=== PATIENT | female | born 1990 | race African-American/Black ===

== ENCOUNTER 2016-08-08 15:11 | Emergency (ER) | payer SELFPAY ==
[2016-08-08] MEDS ORDERED: FAMOTIDINE 20 MG TABLET PO ONE (15:57)
[2016-08-08] MEDS ORDERED: DIPHENHYDRAMINE HCL 25 MG CAPSULE PO ONE (15:57)
--- NOTE | 2016-08-08 15:57 | ER Document Report ---
ED Medical Screen (RME) - General Stated Complaint: SKIN PROBLEM Notes: thursday "rash" that is in no particular distribution. denies new medication, new cleaning products, soaps had exposure to a "dog cleaning product" on thursday never had chicken pox I have greeted and performed a rapid initial assessment of this patient. A comprehensive ED assessment and evaluation of the patient, analysis of test results and completion of the medical decision making process will be conducted by additional ED providers. TRAVEL OUTSIDE OF THE [place] IN LAST 30 DAYS: No - Related Data Allergies/Adverse Reactions: coconut Allergy (Verified 06/04/16 23:42) Past Medical History - Immunizations Hx Diphtheria, Pertussis, Tetanus Vaccination: Yes Physical Exam - Vital signs Vitals: Temp Pulse Resp BP Pulse Ox 98.1 F 87 18 110/65 100 08/08/16 15:35 08/08/16 15:35 08/08/16 15:35 08/08/16 15:35 08/08/16 15:35 Course - Vital Signs Vital signs: Temp Pulse Resp BP Pulse Ox 98.1 F 87 18 110/65 100 08/08/16 15:35 08/08/16 15:35 08/08/16 15:35 08/08/16 15:35 08/08/16 15:35
--- NOTE | 2016-08-08 18:16 | ER Document Report ---
ED General - General Chief Complaint: Rash Stated Complaint: SKIN PROBLEM Mode of Arrival: Ambulatory Information source: Patient Notes: Patient is a 26 yo female who presents with red rash that itches that has been present for the past 2 days. She states it started on her right lower leg and spread up her leg and is now on the other leg, both arms and her face. She describes it as itching. She denies any new soaps, cleaning products, lotions. She denies any contact with poison padmini or poison oak. No new pets. She does endorse being around a pet cleaning product last week. TRAVEL OUTSIDE OF THE [place] IN LAST 30 DAYS: No - Related Data Allergies/Adverse Reactions: coconut Allergy (Verified 08/08/16 15:55) Past Medical History - Social History Smoking Status: Never Smoker Chew tobacco use (# tins/day): No Frequency of alcohol use: None Drug Abuse: None Family History: Reviewed & Not Pertinent Patient has suicidal ideation: No Patient has homicidal ideation: No Renal/ Medical History: Denies: Hx Peritoneal Dialysis Past Surgical History: Reports: Hx Section - Immunizations Hx Diphtheria, Pertussis, Tetanus Vaccination: Yes Review of Systems - Review of Systems Constitutional: See HPI EENT: No symptoms reported Cardiovascular: No symptoms reported Respiratory: No symptoms reported Gastrointestinal: No symptoms reported Genitourinary: No symptoms reported Female Genitourinary: No symptoms reported Musculoskeletal: No symptoms reported Skin: See HPI Hematologic/Lymphatic: No symptoms reported Neurological/Psychological: No symptoms reported Physical Exam - Vital signs Vitals: Temp Pulse Resp BP Pulse Ox 98.1 F 87 18 110/65 100 08/08/16 15:35 08/08/16 15:35 08/08/16 15:35 08/08/16 15:35 08/08/16 15:35 Interpretation: Normal - Notes Notes: PHYSICAL EXAM: CONSTITUTIONAL: Alert and oriented, well-appearing and in no acute distress. HENT: Normocephalic, atraumatic. Moist mucous membranes. EYES: Pupils equal round and reactive to light, EOM intact. Sclera anicteric, conjunctiva are normal. No entrapment. HEART: Regular rate and rhythm without murmurs. LUNGS: CTAB and equal. No wheezes, rales or rhonchi. EXTREMITIES: Normal range of motion, no pitting edema. No cyanosis. Cap Refill < 3 seconds. PSYCH: Normal mood, normal affect. SKIN: Warm and dry. Normal turgor. No lesions noted. Scattered erythematous papules on bilateral lower extremities and bilateral upper extremities and right cheek. Course - Re-evaluation Re-evalutation: 08/08/16 18:30 Patient seen and examined. Rash consistent with contact dermatitis. Will discharge home in stable condition with script, follow-up with PMD. Discussed supportive care treatments. Patient in agreement with management and plan. - Vital Signs Vital signs: Temp Pulse Resp BP Pulse Ox 98.1 F 87 18 110/65 100 08/08/16 15:35 08/08/16 15:35 08/08/16 15:35 08/08/16 15:35 08/08/16 15:35 Discharge - Discharge Clinical Impression: Contact dermatitis Qualifiers: Contact dermatitis type: irritant Contact dermatitis trigger: unspecified trigger Qualified Code(s): L24.9 - Irritant contact dermatitis, unspecified cause Condition: Stable Disposition: HOME, SELF-CARE Additional Instructions: STEROID MEDICATION: You have been given a medicine of the cortisone/steroid class. This medication is used to control inflammation or allergy. It is usually only given for a short period of time, until the acute process subsides. There are usually no side effects from short-term use of cortisone-like medications. Some persons feel an increased sense of well-being and are not sleepy at bedtime. Long-term use of cortisone medications is best avoided, unless required for a severe condition. If your condition does not remit, or relapses after the course of corticosteroid medication, you should consult your physician. Permethrin Topical: Cream 5%: Thoroughly massage cream from head to soles of feet; leave on for 8 to 14 hours before removing (shower or bath); may repeat if living mites are observed 14 days after first treatment; one application is generally curative. Scabies scabies are microscopic parasites of the skin. These mites nalini through the skin, causing severe itching. The mite can be spread to other persons by skin contact. All clothing, towels, and bedding should be washed in very hot water, set aside for a week, then washed again. You should apply scabies-killing lotion from the neck down, then wash it off after 12 hours. You may need medication for itching, as the itch persists for many days after the mites have been killed. All family members and close personal contacts should be examined. Repeat treatment may be necessary if the infestation is not eliminated with a single treatment. Call the doctor if you develop increasing swelling and redness, red streaks , tender lumps, fever, or drainage from a skin sore. Prescriptions: Hydrocortisone/Oatmeal/Aloe/E [Hydrocortisone 1% Cream] 1 applic TP Q4HP PRN #1 cream.gm. PRN Reason: Permethrin [Acticin 5% Cream 60 gm] 1 applic TP ONCE PRN #1 tube PRN Reason: Prednisone [Deltasone 20 mg Tablet] 3 tab PO DAILY 5 Days
[2016-08-08 18:54] VITALS: BP 109/67
== END 2016-08-08 18:54 | disposition home or self-care (01) ==
LOC: ER 15:11
DX: L24.9 Irritant contact dermatitis, unspecified cause (principal); Z91.018 Allergy to other foods
CPT/HCPCS: 99282

== ENCOUNTER 2016-10-07 16:31 | Emergency (ER) | payer SELFPAY ==
--- NOTE | 2016-10-07 17:15 | ER Document Report ---
ED Medical Screen (RME) - General Chief Complaint: Flu Symptoms Stated Complaint: NAUSEA,BODY ACHES,HEADACHE Notes: This 26-year-old female reports onset today of nausea, body aches, runny nose, tired and fatigued, chest pain, headache. She also reports she has had several bowel movements today, they are not diarrhea. LMP 10/01/2016 I have greeted and performed a rapid initial assessment of this patient. A comprehensive ED assessment and evaluation of the patient, analysis of test results and completion of the medical decision making process will be conducted by additional ED providers. TRAVEL OUTSIDE OF THE [place] IN LAST 30 DAYS: No - Related Data Allergies/Adverse Reactions: coconut Allergy (Verified 10/07/16 16:38) Past Medical History Renal/ Medical History: Denies: Hx Peritoneal Dialysis Past Surgical History: Reports: Hx Section - Immunizations Hx Diphtheria, Pertussis, Tetanus Vaccination: Yes Physical Exam - Vital signs Vitals: Temp Pulse Resp BP Pulse Ox 98.4 F 87 18 132/100 H 100 10/07/16 16:41 10/07/16 16:41 10/07/16 16:41 10/07/16 16:41 10/07/16 16:41 Course - Vital Signs Vital signs: Temp Pulse Resp BP Pulse Ox 98.4 F 87 18 132/100 H 100 10/07/16 16:41 10/07/16 16:41 10/07/16 16:41 10/07/16 16:41 10/07/16 16:41
[2016-10-07 17:37] LABS: ABSOLUTE EOSINOPHILS # (AUTO) 0.1 10^3/uL (0.0-0.6); ABSOLUTE LYMPHOCYTES (AUTO) 3.5 10^3/uL (0.5-4.7); ABSOLUTE MONOCYTES (AUTO) 0.4 10^3/uL (0.1-1.4); ABSOLUTE NEUT (AUTO) 2.9 10^3/uL (1.7-8.2); BASOPHILS % (AUTO) 0.4 % (0-2); EOSINOPHILS % (AUTO) 1.1 % (0-6); HEMATOCRIT 33.6 % (36.0-47.0); HEMOGLOBIN 10.7 g/dL (12.0-15.5); HGB HCT DIFFERENCE -1.5; LYMPHOCYTES % (AUTO) 50.9 % (13-45); MEAN CORPUSCULAR HEMOGLOBIN 22.4 pg (27.0-33.4); MEAN CORPUSCULAR HGB CONC 31.9 g/dL (32.0-36.0); MEAN CORPUSCULAR VOLUME 70 fl (80-97); MONOCYTES % (AUTO) 6.1 % (3-13); RED BLOOD COUNT 4.77 10^6/uL (3.72-5.28); RED CELL DISTRIBUTION WIDTH 17.2 % (11.5-14.0); SEGMENTED NEUTROPHILS % (AUTO) 41.5 % (42-78); WHITE BLOOD COUNT 6.9 10^3/uL (4.0-10.5)
[2016-10-07 17:39] LABS: APPEARANCE,URINE SLIGHTLY-CLOUDY; BILIRUBIN,URINE NEGATIVE (NEGATIVE); GLUCOSE, URINE NEGATIVE (NEGATIVE); KETONES,URINE NEGATIVE (NEGATIVE); LEUKOCYTE ESTERASE,URINE TRACE (NEGATIVE); NITRITE,URINE NEGATIVE (NEGATIVE); PROTEIN,URINE NEGATIVE (NEGATIVE); URINE SPECIFIC GRAVITY 1.019; UROBILINOGEN,URINE NEGATIVE mg/dL (<2.0)
[2016-10-07 17:56] LABS: ALANINE AMINOTRANSFERASE 30 U/L (9-52); ALBUMIN 4.8 g/dL (3.5-5.0); ALKALINE PHOSPHATASE 67 U/L (38-126); ANION GAP 14 (5-19); ASPARTATE AMINO TRANSFERASE 20 U/L (14-36); BILIRUBIN,DIRECT 0.2 mg/dL (0.0-0.4); BILIRUBIN,TOTAL 0.5 mg/dL (0.2-1.3); BLOOD UREA NITROGEN 9 mg/dL (7-20); CALCIUM 9.4 mg/dL (8.4-10.2); CARBON DIOXIDE 27 mmol/L (22-30); CHLORIDE 106 mmol/L (98-107); CREATININE RESULT 0.65 mg/dL (0.52-1.25); GLUCOSE 87 mg/dL (75-110); POTASSIUM 4.1 mmol/L (3.6-5.0); SODIUM 147.1 mmol/L (137-145); TOTAL PROTEIN 7.7 g/dL (6.3-8.2)
--- NOTE | 2016-10-07 19:06 | ER Document Report ---
HPI - HPI Patient complains to provider of: bodyaches, nausea, runny nose Onset: Yesterday Onset/Duration: Gradual Pain Level: 4 Context: 26-year-old female complaining of runny nose, generalized bodyaches, diarrhea, heartburn, nausea this morning. No fever or chills. No vomiting. No rash. No chest pain, shortness of breath, or abdominal pain. Associated Symptoms: None Exacerbated by: Denies Relieved by: Denies Similar symptoms previously: No Recently seen / treated by doctor: No - ROS ROS below otherwise negative: Yes Systems Reviewed and Negative: Yes All other systems reviewed and negative - sore throat for 10 days on a smoker with no fever no cancer until proven ot - REPRODUCTIVE Reproductive: DENIES: : - DERM Skin Color: Normal Past Medical History - General Information source: Patient - the 1 - Social History Smoking Status: Unknown if Ever Smoked Frequency of alcohol use: None Drug Abuse: None Lives with: Family Family History: Reviewed & Not Pertinent Patient has suicidal ideation: No Patient has homicidal ideation: No - Medical History Medical History: Negative Renal/ Medical History: Denies: Hx Peritoneal Dialysis Past Surgical History: Reports: Hx Section - Immunizations Hx Diphtheria, Pertussis, Tetanus Vaccination: Yes Vertical Provider Document - CONSTITUTIONAL Agree With Documented VS: Yes - INFECTION CONTROL TRAVEL OUTSIDE OF THE [place] IN LAST 30 DAYS: No - HEENT HEENT: Normocephalic - elevated blood pressure I initially asked what medical problems he hadn't yet to take medicines for, Pharyngeal Erythema - mild no. negative: Tympanic Membrane Red, Tympanic Membrane Bulging - More - NECK Neck: Supple. negative: Lymphadenopathy-Left, Lymphadenopathy-Right - RESPIRATORY Respiratory: Breath Sounds Normal, No Respiratory Distress O2 Sat by Pulse Oximetry: 100 - CARDIOVASCULAR Cardiovascular: Regular Rate, Regular Rhythm - GI/ABDOMEN Gastrointestinal: Abdomen Soft, Abdomen Non-Tender, No Organomegaly - MUSCULOSKELETAL/EXTREMETIES Musculoskeletal/Extremeties: MAEW, FROM, Non-Tender - NEURO Level of Consciousness: Awake, Alert - DERM Integumentary: Warm, No Rash Course - Vital Signs Vital signs: Temp Pulse Resp BP Pulse Ox 98.4 F 87 18 132/100 H 100 10/07/16 16:41 10/07/16 16:41 10/07/16 16:41 10/07/16 16:41 10/07/16 16:41 - Laboratory Result Diagrams: 10/07/16 17:25 10/07/16 17:25 Laboratory results interpreted by me: 10/07/16 10/07/16 10/07/16 17:25 17:25 17:25 Hgb 10.7 L Hct 33.6 L MCV 70 L MCH 22.4 L MCHC 31.9 L RDW 17.2 H Seg Neutrophils % 41.5 L Lymphocytes % 50.9 H Sodium 147.1 H Ur Leukocyte Esterase TRACE H Discharge - Discharge Clinical Impression: diarrhea, Elevated blood pressure reading Anemia Qualifiers: Anemia type: unspecified type Qualified Code(s): D64.9 - Anemia, unspecified Upper respiratory infection Qualifiers: URI type: unspecified viral URI Qualified Code(s): J06.9 - Acute upper respiratory infection, unspecified Condition: Good Disposition: HOME, SELF-CARE Instructions: Acetaminophen, Upper Respiratory Illness ([facility]), Diarrhea, Nonspecific ([facility]), Fatigue ([facility]), High Blood Pressure ([facility]) Additional Instructions: plenty of fluids rest to er if worse see family urgent care for follow up Please complete the patient satisfaction survey if you get one, and return it.. If you do not receive a survey, then you can go to the [facility] website, [email or web address] and place your comments about your very good care. Thank you very much. It was a pleasure being your medical provider today. Forms: Return to Work Referrals: DORENE COLE MD [ACTIVE STAFF] - Follow up in 1 week
[2016-10-07 23:58] VITALS: BP 120/78
== END 2016-10-07 20:00 | disposition home or self-care (01) ==
LOC: ER 16:31
DX: J06.9 Acute upper respiratory infection, unspecified (principal); R19.7 Diarrhea, unspecified; R03.0 Elevated blood-pressure reading, without diagnosis of hypertension; D64.9 Anemia, unspecified; R52 Pain, unspecified; R11.0 Nausea; R09.89 Other specified symptoms and signs involving the circulatory and respiratory systems; R12 Heartburn
CPT/HCPCS: 36415; 80053; 81001; 84703; 85025; 99283

== ENCOUNTER 2016-10-16 10:00 | Emergency (ER) | payer SELFPAY ==
[2016-10-16] MEDS ORDERED: NAPROXEN 250 MG TABLET PO ONE (10:45)
--- NOTE | 2016-10-16 10:50 | ER Document Report ---
HPI - HPI Patient complains to provider of: bilateral wrist pain Onset: Yesterday Onset/Duration: Gradual Quality of pain: Achy Pain Level: 4 Context: Patient complains of bilateral wrist pain with tingling. Patient denies any injury. Patient denies any fever. Patient is right-hand dominant. Associated Symptoms: Other - Bilateral wrist pain Exacerbated by: Movement Relieved by: Denies Similar symptoms previously: No Recently seen / treated by doctor: No - ROS ROS below otherwise negative: Yes Systems Reviewed and Negative: Yes All other systems reviewed and negative - CONSTITUTIONAL Constitutional: DENIES: Fever - NEURO Neurology: DENIES: Weakness - CARDIOVASCULAR Cardiovascular: DENIES: Chest pain - REPRODUCTIVE Reproductive: DENIES: : - MUSCULOSKELETAL Musculoskeletal: REPORTS: Extremity pain. DENIES: Swelling - DERM Skin Color: Normal Skin Problems: None Past Medical History - General Information source: Patient - Social History Smoking Status: Never Smoker Chew tobacco use (# tins/day): No Frequency of alcohol use: None Drug Abuse: None Occupation: sales agent food vending service Family History: Reviewed & Not Pertinent Patient has suicidal ideation: No - Medical History Medical History: Negative Renal/ Medical History: Denies: Hx Peritoneal Dialysis Past Surgical History: Reports: Hx Section - Immunizations Hx Diphtheria, Pertussis, Tetanus Vaccination: Yes Vertical Provider Document - CONSTITUTIONAL Agree With Documented VS: Yes Exam Limitations: No Limitations - INFECTION CONTROL TRAVEL OUTSIDE OF THE [place] IN LAST 30 DAYS: No - HEENT HEENT: Atraumatic, Normocephalic - NECK Neck: Normal Inspection Notes: No cervical midline tenderness, step-off, or deformity - RESPIRATORY Respiratory: Breath Sounds Normal, No Respiratory Distress O2 Sat by Pulse Oximetry: 100 - CARDIOVASCULAR Cardiovascular: Regular Rate, Regular Rhythm, No Murmur Pulses: Normal: Radial - BACK Back: Normal Inspection - MUSCULOSKELETAL/EXTREMETIES Musculoskeletal/Extremeties: MAEW, FROM, Tender - Mild tenderness to bilateral wrist with range of motion, No Edema - NEURO Level of Consciousness: Awake, Alert, Appropriate Motor/Sensory: No Motor Deficit, No Sensory Deficit Notes: Normal strength to bilateral upper extremities 5/5 Positive Phalen and Tinel sign - DERM Integumentary: Warm, Dry, No Rash Course - Vital Signs Vital signs: Temp Pulse Resp BP Pulse Ox 98.7 F 85 18 114/64 100 10/16/16 10:04 10/16/16 10:04 10/16/16 10:04 10/16/16 10:04 10/16/16 10:04 Procedures - Immobilization Left Wrist Pre-Proc Neuro Vasc Exam: Normal Immobilizer type: Cock-up Performed by: PCT Post-Proc Neuro Vasc Exam: Normal Alignment checked and good: Yes Right Wrist Pre-Proc Neuro Vasc Exam: Normal Immobilizer type: Cock-up Performed by: PCT Post-Proc Neuro Vasc Exam: Normal Alignment checked and good: Yes Discharge - Discharge Clinical Impression: Bilateral wrist pain Condition: Stable Disposition: HOME, SELF-CARE Instructions: Carpal Tunnel Syndrome ([facility]), Temporary Splint ([facility]), Anti- Inflammatory Medication ([facility]) Additional Instructions: Return immediately for any new or worsening symptoms Followup with your primary care provider, call tomorrow to make a followup appointment Avoid repetitive wrist movements Follow-up with your primary doctor for recheck, you may need additional outpatient testing for any continued pain or problems Prescriptions: Naproxen [Naprosyn 250 Nmg Tablet] 1 tab PO BID #14 tablet Referrals: [facility] [Provider Group] - Follow up in 3-5 days
[2016-10-16 11:10] VITALS: BP 118/61
== END 2016-10-16 11:13 | disposition home or self-care (01) ==
LOC: ER 10:00
DX: M25.531 Pain in right wrist (principal); M25.532 Pain in left wrist; R20.2 Paresthesia of skin
CPT/HCPCS: 99283; L3984 ×2

== ENCOUNTER 2019-02-08 16:39 | Emergency (ER) | payer BC, MEDICAID ==
[2019-02-08] MEDS ORDERED: HYDROCODONE/ACETAMINOPHEN 5-325 MG TABLET PO ONE (17:30)
--- NOTE | 2019-02-08 17:31 | ER Document Report ---
HPI - HPI Time Seen by Provider: 02/08/19 17:22 Pain Level: 4 - REPRODUCTIVE Reproductive: DENIES: : Past Medical History - General Information source: Patient - Social History Smoking Status: Never Smoker Frequency of alcohol use: Occasional Drug Abuse: None Occupation: [employer] work Lives with: Family Family History: Reviewed & Not Pertinent Patient has suicidal ideation: No Patient has homicidal ideation: No Renal/ Medical History: Denies: Hx Peritoneal Dialysis Past Surgical History: Reports: Hx Section - Immunizations Hx Diphtheria, Pertussis, Tetanus Vaccination: Yes Vertical Provider Document - CONSTITUTIONAL Agree With Documented VS: Yes Exam Limitations: No Limitations General Appearance: WD/WN, No Apparent Distress Notes: PHYSICAL EXAMINATION: GENERAL: Well-appearing, well-nourished and in no acute distress. HEAD: Atraumatic, normocephalic. EYES: sclera clear, anicteric, conjunctiva are normal. ENT: nares patent, Moist mucous membranes. NECK: Normal range of motion, supple LUNGS: respirations unlabored HEART: Regular rate and rhythm without murmurs EXTREMITIES: Normal range of motion, no pitting or edema. No cyanosis. Gait normal, pt ambulates without difficulty BACK: No lumbar midline tenderness, no deformities or step-offs. Right CVA tenderness. NEUROLOGICAL: Cranial nerves grossly intact. Normal speech, normal gait. PSYCH: Normal mood, normal affect. SKIN: Warm, Dry, normal turgor, no rashes or lesions noted. - INFECTION CONTROL TRAVEL OUTSIDE OF THE [place] IN LAST 30 DAYS: No Course - Vital Signs Vital signs: Temp Pulse Resp BP Pulse Ox 98.0 F 85 14 111/63 100 02/08/19 16:54 02/08/19 16:54 02/08/19 16:54 02/08/19 16:54 02/08/19 16:54 Discharge - Discharge Referrals: SAW DALEY MD [Primary Care Provider] - Follow up as needed
[2019-02-08 18:18] LABS: APPEARANCE,URINE SLIGHTLY-CLOUDY; BILIRUBIN,URINE SMALL (NEGATIVE); GLUCOSE, URINE NEGATIVE (NEGATIVE); KETONES,URINE TRACE mg/dL (NEGATIVE); LEUKOCYTE ESTERASE,URINE SMALL (NEGATIVE); NITRITE,URINE POSITIVE (NEGATIVE); PROTEIN,URINE 30 mg/dL (NEGATIVE); URINE SPECIFIC GRAVITY 1.034
[2019-02-08 18:19] LABS: COLOR,URINE DARK YELLOW
[2019-02-08] MEDS ORDERED: KETOROLAC TROMETHAMINE INJ/PF 30 MG/1 ML SDV IV ONE (18:40)
[2019-02-08] MEDS ORDERED: NORMAL SALINE 1000 ML 1,000 ML IV ONE (18:40)
[2019-02-08] MEDS ORDERED: CEFTRIAXONE 1 GM/D5W RTU 1 GM/50 ML RTUPB IV ONE (18:40)
[2019-02-08] MEDS ORDERED: ONDANSETRON HCL INJ/PF 4 MG/2 ML SDV IV ONE (18:42)
--- NOTE | 2019-02-08 18:43 | ER Document Report ---
ED Medical Screen (RME) - General Chief Complaint: Back Pain Stated Complaint: BACK PAIN Time Seen by Provider: 02/08/19 17:22 Primary Care Provider: SAW DALEY MD [ACTIVE STAFF] - Follow up as needed Mode of Arrival: Ambulatory Information source: Patient Notes: Patient presents complaining of right flank pain for the past 4 days with generalized body aches. Patient states intensity of pain will vary. Patient does report some mild nausea. Patient denies any urinary symptoms. I have greeted and performed a rapid initial assessment of this patient. [facility] prehensive ED assessment and evaluation of the patient, analysis of test results and completion of the medical decision making process will be conducted by additional ED providers. TRAVEL OUTSIDE OF THE [place] IN LAST 30 DAYS: No - Related Data Allergies/Adverse Reactions: coconut Allergy (Verified 02/08/19 16:40) Past Medical History - Social History Frequency of alcohol use: Occasional Drug Abuse: None Renal/ Medical History: Denies: Hx Peritoneal Dialysis Past Surgical History: Reports: Hx Section - Immunizations Hx Diphtheria, Pertussis, Tetanus Vaccination: Yes Physical Exam - Vital signs Vitals: Temp Pulse Resp BP Pulse Ox 98.0 F 85 14 111/63 100 02/08/19 16:54 02/08/19 16:54 02/08/19 16:54 02/08/19 16:54 02/08/19 16:54 - Back Back: CVA tenderness - Right flank Course - Vital Signs Vital signs: Temp Pulse Resp BP Pulse Ox 98.0 F 85 14 111/63 100 02/08/19 16:54 02/08/19 16:54 02/08/19 16:54 02/08/19 16:54 02/08/19 16:54 - Laboratory Laboratory results interpreted by me: 02/08/19 17:45 Urine Protein 30 H Urine Ketones TRACE H Urine Nitrite POSITIVE H Urine Bilirubin SMALL H Urine Urobilinogen 4.0 H Ur Leukocyte Esterase SMALL H Urine Ascorbic Acid 40 H Doctor's Discharge - Discharge Referrals: SAW DALEY MD [ACTIVE STAFF] - Follow up as needed
[2019-02-08 20:18] LABS: ABSOLUTE BASOPHILS # (AUTO) 0.1 10^3/uL (0.0-0.2); ABSOLUTE EOSINOPHILS # (AUTO) 0.1 10^3/uL (0.0-0.6); ABSOLUTE LYMPHOCYTES (AUTO) 3.6 10^3/uL (0.5-4.7); ABSOLUTE MONOCYTES (AUTO) 0.6 10^3/uL (0.1-1.4); ABSOLUTE NEUT (AUTO) 5.5 10^3/uL (1.7-8.2); EOSINOPHILS % (AUTO) 0.9 % (0-6); HEMATOCRIT 35.7 % (36.0-47.0); HEMOGLOBIN 11.4 g/dL (12.0-15.5); LYMPHOCYTES % (AUTO) 36.2 % (13-45); MEAN CORPUSCULAR HEMOGLOBIN 23.7 pg (27.0-33.4); MEAN CORPUSCULAR VOLUME 74 fl (80-97); MONOCYTES % (AUTO) 5.9 % (3-13); PLATELET COUNT 334 10^3/uL (150-450); RED BLOOD COUNT 4.83 10^6/uL (3.72-5.28); RED CELL DISTRIBUTION WIDTH 17.7 % (11.5-14.0); TOTAL CELLS COUNTED % (AUTO) 100 %; WHITE BLOOD COUNT 9.9 10^3/uL (4.0-10.5)
--- NOTE | 2019-02-08 20:31 | RADIOLOGY REPORT (SQ) ---
CT ABDOMEN PELVIS WITHOUT IV CONTRAST EXAM DATE: 02/08/2019 6:41 PM CDT HISTORY: Right flank pain. COMPARISON: None. TECHNIQUE: CT scan of the abdomen and pelvis was performed without IV contrast. This exam was performed according to our departmental dose-optimization program, which includes automated exposure control, adjustment of the mA and/or kV according to patient size and/or use of iterative reconstruction technique. FINDINGS: The lung bases are clear. No pleural or pericardial effusions. There is no hiatal hernia. The liver, spleen, pancreas, gallbladder, adrenal glands, and kidneys are unremarkable. No urinary stones are seen. The pelvic organs are also unremarkable. No small bowel obstruction. The appendix is normal. There is no evidence of diverticulitis. No intraperitoneal free fluid or free air is identified. The aorta is normal caliber. No acute bony findings are seen. There is no pathologic body wall hernia. IMPRESSION: No acute abdominal or pelvic pathology.
[2019-02-08 20:39] LABS: ALBUMIN 4.6 g/dL (3.5-5.0); ALKALINE PHOSPHATASE 66 U/L (38-126); ANION GAP 10 (5-19); ASPARTATE AMINO TRANSFERASE 20 U/L (14-36); BILIRUBIN,DIRECT 0.2 mg/dL (0.0-0.4); BILIRUBIN,TOTAL 0.3 mg/dL (0.2-1.3); BLOOD UREA NITROGEN 20 mg/dL (7-20); CALCIUM 9.3 mg/dL (8.4-10.2); CARBON DIOXIDE 26 mmol/L (22-30); CHLORIDE 105 mmol/L (98-107); GLUCOSE 88 mg/dL (75-110); POTASSIUM 3.9 mmol/L (3.6-5.0); TOTAL PROTEIN 7.7 g/dL (6.3-8.2)
[2019-02-08] MEDS ORDERED: ONDANSETRON ODT 4 MG TAB (6 TAB/ER DISP) PO PRN (21:15)
[2019-02-08] MEDS ORDERED: HYDROCODONE/ACETAMINOPHEN 5-325 MG (6 TAB/ER DISP) PO PRN (21:15)
--- NOTE | 2019-02-08 21:15 | ER Document Report ---
ED General - General Chief Complaint: Back Pain Stated Complaint: BACK PAIN Time Seen by Provider: 02/08/19 17:22 Primary Care Provider: SAW DALEY MD [ACTIVE STAFF] - Follow up as needed Mode of Arrival: Ambulatory Notes: Patient is otherwise healthy 28-year-old female presents to the emergency department for right flank pain. Patient states she has had generalized right flank pain for the last 4 days. Patient states pain intermittently will radiate around to her right side. Patient is also complaining of generalized nausea, denies any vomiting or diarrhea. Denies any fevers, denies any dysuria but does admit to urinary frequency. Patient's denying any vaginal discharge. Patient's denying any history of kidney stones. TRAVEL OUTSIDE OF THE [place] IN LAST 30 DAYS: No - Related Data Allergies/Adverse Reactions: coconut Allergy (Verified 02/08/19 16:40) Past Medical History - General Information source: Patient - Social History Smoking Status: Never Smoker Chew tobacco use (# tins/day): No Frequency of alcohol use: Rare Drug Abuse: None Family History: Reviewed & Not Pertinent Patient has suicidal ideation: No Patient has homicidal ideation: No Renal/ Medical History: Denies: Hx Peritoneal Dialysis Past Surgical History: Reports: Hx Section - Immunizations Hx Diphtheria, Pertussis, Tetanus Vaccination: Yes Review of Systems - Review of Systems Constitutional: denies: Fever EENT: No symptoms reported Cardiovascular: No symptoms reported Respiratory: No symptoms reported Gastrointestinal: See HPI Genitourinary: See HPI Female Genitourinary: See HPI, Last menstrual period - Unsure Musculoskeletal: See HPI Skin: No symptoms reported Hematologic/Lymphatic: No symptoms reported Neurological/Psychological: No symptoms reported Physical Exam - Vital signs Vitals: Temp Pulse Resp BP Pulse Ox 98.0 F 85 14 111/63 100 02/08/19 16:54 02/08/19 16:54 02/08/19 16:54 02/08/19 16:54 02/08/19 16:54 - Notes Notes: GENERAL: Alert, interacts well. No acute distress. HEAD: Normocephalic, atraumatic. EYES: Pupils equal, round, and reactive to light. Extraocular movements intact. ENT: Oral mucosa moist, tongue midline. NECK: Full range of motion. Supple. Trachea midline. LUNGS: Clear to auscultation bilaterally, no wheezes, rales, or rhonchi. No respiratory distress. HEART: Regular rate and rhythm. No murmur ABDOMEN: Soft, non-tender. Non-distended. Bowel sounds present in all 4 quadrants. No McBurney's point tenderness, no Seymour sign noted. EXTREMITIES: Moves all 4 extremities spontaneously. No edema, normal radial and dorsalis pedis pulses bilaterally. No cyanosis. BACK: no cervical, thoracic, lumbar midline tenderness. No saddle anesthesia, normal distal neurovascular exam. Minor right CVA tenderness noted, no left CVA tenderness. NEUROLOGICAL: Alert and oriented x3. Normal speech. cranial nerves II through XII grossly intact PSYCH: Normal affect, normal mood. SKIN: Warm, dry, normal turgor. No rashes or lesions noted. Course - Re-evaluation Re-evalutation: 02/08/19 21:13 Laboratory 02/08/19 02/08/19 02/08/19 17:45 19:53 19:53 WBC 9.9 RBC 4.83 Hgb 11.4 L Hct 35.7 L MCV 74 L MCH 23.7 L MCHC 32.0 RDW 17.7 H Plt Count 334 Seg Neutrophils % 56.0 Lymphocytes % 36.2 Monocytes % 5.9 Eosinophils % 0.9 Basophils % 1.0 Absolute Neutrophils 5.5 Absolute Lymphocytes 3.6 Absolute Monocytes 0.6 Absolute Eosinophils 0.1 Absolute Basophils 0.1 Sodium 140.5 Potassium 3.9 Chloride 105 Carbon Dioxide 26 Anion Gap 10 BUN 20 Creatinine 0.89 Est GFR ( Amer) > 60 Est GFR (Non-Af Amer) > 60 Glucose 88 Calcium 9.3 Total Bilirubin 0.3 Direct Bilirubin 0.2 Neonat Total Bilirubin Not Reportable Neonat Direct Bilirubin Not Reportable Neonat Indirect Bili Not Reportable AST 20 ALT 11 Alkaline Phosphatase 66 Total Protein 7.7 Albumin 4.6 Urine Color DARK YELLOW Urine Appearance SLIGHTLY-CLOUDY Urine pH 5.0 Ur Specific [place] 1.034 Urine Protein 30 H Urine Glucose (UA) NEGATIVE Urine Ketones TRACE H Urine Blood NEGATIVE Urine Nitrite POSITIVE H Urine Bilirubin SMALL H Urine Urobilinogen 4.0 H Ur Leukocyte Esterase SMALL H Urine WBC (Auto) 15 Urine RBC (Auto) 19 Urine Bacteria (Auto) TRACE Squamous Epi Cells Auto 2 U Non-Squamous Epis Auto 3 Urine Mucus (Auto) MANY Urine Ascorbic Acid 40 H Urine HCG, Qual NEGATIVE Abdomen/Pelvis CT 02/08/19 18:41 IMPRESSION: No acute abdominal or pelvic pathology. Upon my evaluation the patient patient is Guilherme been treated with pain management, fluid resuscitation and antibiotics. Her CT imaging shows no acute pelvic or abdominal pathology. Patient's urine does do show signs of infection, sent for culture. My exam reveals very minor right CVA tenderness. Patient voices that she does feel a lot better than when she arrived to the emergency room. Discussed use of antibiotics, nausea medication and pain medication with close follow-up. At this time will discharge with return precautions and follow-up recommendations. Verbal discharge instructions given a the bedside and opportunity for questions given. Medication warnings reviewed. Patient is in agreement with this plan and has verbalized understanding of return precautions and the need for primary care follow-up in the next 24-72 hours. This medical record was dictated with voice recognizing software. There may be grammatical, syntax errors that are unintended. - Vital Signs Vital signs: Temp Pulse Resp BP Pulse Ox 98.0 F 85 14 111/63 100 02/08/19 16:54 02/08/19 16:54 02/08/19 16:54 02/08/19 16:54 02/08/19 16:54 - Laboratory Result Diagrams: 02/08/19 19:53 02/08/19 19:53 Laboratory results interpreted by me: 02/08/19 02/08/19 17:45 19:53 Hgb 11.4 L Hct 35.7 L MCV 74 L MCH 23.7 L RDW 17.7 H Urine Protein 30 H Urine Ketones TRACE H Urine Nitrite POSITIVE H Urine Bilirubin SMALL H Urine Urobilinogen 4.0 H Ur Leukocyte Esterase SMALL H Urine Ascorbic Acid 40 H Discharge - Discharge Clinical Impression: Urinary tract infection Qualifiers: Urinary tract infection type: acute pyelonephritis Qualified Code(s): N10 - Acute pyelonephritis Condition: Stable Disposition: HOME, SELF-CARE Instructions: Urinary Tract Infection ([facility]), Cephalexin ([facility]) Additional Instructions: As we discussed you have been seen and treated in the emergency department for urinary tract infection. Please make sure taking antibiotics as prescribed. Please use pain management and nausea medication only as needed. Please follow- up with a primary care provider in the next 24 to 48 hours. Return to the emergency room for any further concerns. Prescriptions: Cephalexin Monohydrate [Keflex 500 mg Capsule] 500 mg PO BID 7 Days #14 capsule Forms: Return to Work Referrals: SAW DALEY MD [ACTIVE STAFF] - Follow up as needed
[2019-02-08 21:52] VITALS: BP 111/64
== END 2019-02-08 21:53 | disposition home or self-care (01) ==
LOC: ER 16:39
DX: N10 Acute pyelonephritis (principal); R10.9 Unspecified abdominal pain; R11.0 Nausea; R35.0 Frequency of micturition; Z91.018 Allergy to other foods
CPT/HCPCS: 99284; 96361; 96375; 96365; 36415; 87086; 85025; 81025; 87088; 80053; 81001; 87186; 74176; J1885; J2405; J7030; J0696

== ENCOUNTER 2019-02-25 10:10 | Emergency (ER) | payer OTHER, BC ==
[2019-02-25] MEDS ORDERED: IBUPROFEN 800 MG TABLET PO ONE (11:22)
[2019-02-25] MEDS ORDERED: METHOCARBAMOL 500 MG TABLET PO ONE (11:22)
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
[2019-02-25 12:37] VITALS: BP 126/72
== END 2019-02-25 12:37 | disposition home or self-care (01) ==
LOC: ER 10:10
DX: S16.1XXA Strain of muscle, fascia and tendon at neck level, initial encounter (principal); S29.012A Strain of muscle and tendon of back wall of thorax, initial encounter; V89.2XXA Person injured in unspecified motor-vehicle accident, traffic, initial encounter
CPT/HCPCS: 72070; 72125; 99284

== ENCOUNTER 2019-04-05 10:59 | Emergency (ER) | payer SELFPAY ==
[2019-04-05 11:03] VITALS: BP 104/66
[2019-04-05] MEDS ORDERED: ACETAMINOPHEN 325 MG TABLET PO ONE (11:09)
--- NOTE | 2019-04-05 11:13 | ER Document Report ---
HPI - HPI Time Seen by Provider: 04/05/19 11:05 Pain Level: 3 Context: Patient is a 29-year-old female who presents the emergency department with the chief complaint of left shoulder pain after a fall. She states that she fell down some stairs and lost some consciousness but cannot recall how long she did. She states that ever since the incident she has "felt off." This happened last night. She is able to move all her extremities with no difficulty. Has a enrique le bit of numbness but no weakness. She states that she can feel me touch her. - CONSTITUTIONAL Constitutional: DENIES: Fever, Chills - EENT EENT: DENIES: Sore Throat, Ear Pain - NEURO Neurology: DENIES: Headache, Weakness, Vision blurred, Dizzinesss / Vertigo - CARDIOVASCULAR Cardiovascular: DENIES: Chest pain - RESPIRATORY Respiratory: DENIES: Trouble Breathing, Coughing - REPRODUCTIVE LMP: 02/2019 Reproductive: REPORTS: : - MUSCULOSKELETAL Musculoskeletal: REPORTS: Extremity pain - Left shoulder, Neck Pain - Paraspinal muscles. DENIES: Back Pain, Swelling - DERM Skin Color: Normal Skin Problems: None Past Medical History - Social History Smoking Status: Never Smoker Chew tobacco use (# tins/day): No Drug Abuse: None Family History: Reviewed & Not Pertinent Patient has suicidal ideation: No Patient has homicidal ideation: No Renal/ Medical History: Denies: Hx Peritoneal Dialysis Past Surgical History: Reports: Hx Section - Immunizations Hx Diphtheria, Pertussis, Tetanus Vaccination: Yes Vertical Provider Document - CONSTITUTIONAL Agree With Documented VS: Yes Exam Limitations: No Limitations General Appearance: No Apparent Distress - INFECTION CONTROL TRAVEL OUTSIDE OF THE [place] IN LAST 30 DAYS: No - HEENT HEENT: Atraumatic, Normocephalic, PERRLA - NECK Neck: Normal Inspection, Supple - RESPIRATORY Respiratory: Breath Sounds Normal, No Respiratory Distress - CARDIOVASCULAR Cardiovascular: Regular Rate, Regular Rhythm Pulses: Normal: Radial - GI/ABDOMEN Gastrointestinal: Abdomen Soft, Abdomen Non-Tender - MUSCULOSKELETAL/EXTREMETIES Musculoskeletal/Extremeties: negative: FROM - Decreased range of motion to left shoulder - NEURO Level of Consciousness: Awake, Alert, Appropriate Motor/Sensory: No Motor Deficit, No Sensory Deficit - DERM Integumentary: Warm, Dry, No Rash Course - Re-evaluation Re-evalutation: 10/08/19 11:51 Patient's left shoulder x-ray is negative for any acute findings. Capillary refill less than 3 seconds. Radial pulses 2+. No vascular compromise noted. I have instructed the patient on Tylenol use for pain relief. Patient will follow-up with her primary care provider in regards to this visit. Follow-up precautions were given. Verbal discharge instructions were given to the patient. They verbalized understanding. They are stable for discharge. - Vital Signs Vital signs: Temp Pulse Resp BP Pulse Ox 98.3 F 74 15 104/66 100 04/05/19 11:03 04/05/19 11:03 04/05/19 11:03 04/05/19 11:03 04/05/19 11:03 Discharge - Discharge Clinical Impression: Fall Qualifiers: Encounter type: initial encounter Qualified Code(s): W19.XXXA - Unspecified fall, initial encounter Left shoulder pain Qualifiers: Chronicity: acute Qualified Code(s): M25.512 - Pain in left shoulder Condition: Stable Disposition: HOME, SELF-CARE Additional Instructions: You were seen today in the emergency department for left shoulder pain and headache after a fall. Your x-ray was normal. Please follow-up with your primary care provider in regards to this visit. Please inquire about physical therapy. You can take Tylenol 1000 mg every 6 hours for your pain. You are being placed in a sling to help with comfort. Below are return precautions for concussion. (1) Mental confusion (2) Incoordination or staggering (3) Repeated or forceful vomiting (4) Clear or bloody drainage from ear, mouth, or nose (5) Severe headache, not relieved by acetaminophen or prescribed pain medication (6) Failure to improve in 24 hours Please follow-up with primary care provider in the next 3 to 5 days. Forms: Return to Work
--- NOTE | 2019-04-05 11:44 | RADIOLOGY REPORT (SQ) ---
EXAM DESCRIPTION: SHOULDER LEFT 2 OR MORE VIEWS COMPLETED DATE/TIME: 04/05/2019 11:32 am REASON FOR STUDY: fall COMPARISON: None. NUMBER OF VIEWS: Three views. TECHNIQUE: Internal rotation, external rotation, and Y view images acquired of the left shoulder. LIMITATIONS: None. FINDINGS: MINERALIZATION: Normal. BONES: No acute fracture. No osseous lesion. JOINTS: No dislocation. VISUALIZED LUNGS AND RIBS: No rib fracture or pneumothorax. SOFT TISSUES: No radiopaque foreign body. OTHER: No other finding. IMPRESSION: No acute osseous abnormality of the left shoulder. TECHNICAL DOCUMENTATION: JOB ID: [id number] [employer]- All Rights Reserved Reading location - IP/workstation name: [email or web address]
== END 2019-04-05 12:30 | disposition home or self-care (01) ==
LOC: ER 10:59
DX: M25.512 Pain in left shoulder (principal); R55 Syncope and collapse; M79.18 Myalgia, other site; W10.9XXA Fall (on) (from) unspecified stairs and steps, initial encounter
CPT/HCPCS: 99283